=== PATIENT | male | born 1970 | race Caucasian/White ===

== ENCOUNTER 2016-10-31 18:59 | Emergency (ER) | payer SELFPAY ==
[2016-10-31] MEDS ORDERED: Lidocaine 2%-Epinephrine 1:100,000 20ml vial INF ONE (19:49)
--- NOTE | 2016-10-31 19:49 | EDPRACDOC ---
- General Information Chief Complaint: Wound Stated Complaint: ABSCESS RT ARM HX MRSA Time Seen by Provider: 10/31/16 19:43 Home Medications: Home Medications Naproxen Sodium 500 mg PO BID PRN #20 tablet.sa 10/31/16 Sulfamethoxazole/Trimethoprim [Bactrim Ds Tablet] 1 tab PO BID #20 tab 10/31/16 Allergies/Adverse Reactions: Allergies Allergy/AdvReac Type Severity Reaction Status Date / Time No Known Allergies Allergy Verified 02/17/16 17:14 - History of Present Illness Onset: 2-3 DAYS HPI: PT COMPLAINS OF PAIN, SWELLING AND REDNESS TO RIGHT FOREARM X 2-3 DAYS, PT STATES HAS HX OF MRSA, NO FEVER OR CHILLS, NO N/V/D. Location: Reports: Extremity Relevent History Of: Reports: None Prior Abscess: Reports: Different Pain: Reports: Severe Quality: Reports: Painful, Red Associated Signs & Symptoms: Denies: Chills, Fever, Proximal Streaking ED Past Medical History - History Reviewed Yes Nurses notes reviewed and agree except as marked - Patient Medical History Psychological History: Reports: Substance Use Disorder Additional Past Medical History: MRSA Surgical History: Reports: Other (LEFT HAND) - Family Medical History Reports: Cardiac Disorders (father) - Social Medical History Smoking Status: Heavy tobacco smoker (5 or more cigarettes/day or daily pipe/ cigar) Social History: Reports: Substance Use Disorder (IVDA, IN ED MULTIPLE TIMES FOR OVERDOSE) EDM Review of Systems - Review of Systems Constitutional: negative: Chills, Fever Gastrointestinal: negative: Nausea, Vomiting Musculoskeletal: No Symptoms Reported Integumentary: Wound - Physical Exam Constitutional: Alert (Awake), No apparent distress Oriented to: Time, Person, Place Last recorded Vital Signs: Oxygen Pulse Oxygen Saturation O2 Device Oxygen Flow Rate Fraction of Inspired Oxygen ( FIO2) - HEENT Head: Normal ( normocephalic) - Neurologic Memory Impaired: Normal Motor Function: Normal (Normal tone, Pulses 2+ No cyanosis or edema, FROM) Cranial Nerve: Normal (CN II-X11 intact sensation, strength 5/5) Cerebellar: Normal Mood Description: Normal Perception: Normal ED Abscess/Mass Exam - Integumentary Skin: Warm, Dry Mass: Size (3 CM), Red, Tender, Warm, Fluctuant, Local Cellulitis Lymphatics: Normal ED Procedures - Incision and Drainage Informed of risks, benefits and alternatives described.: Yes Informed Consent Signed: Verbal Site: RIGHT FOREARM Indication: Painful Mass Anesthetic: Lidocaine, with Epi Prep: Betadine Blade Size: 11 Incised Site drained: Reports: Blood, Pus Incised site was: Irrigated, Not Packed with Iodoform - Differential Diagnosis Abscess, Cellulitis Decision Time to Discharge: 20:12 - Departure Disposition: Home Condition: Stable Final Diagnosis: Abscess of right forearm Instructions: MRSA (Methicillin Resistant Staphylococcus Aureus) (ED) Education/Counseling Given To: Patient Education/Counseling Given Regarding: Diagnosis, Treatment, Prognosis, Follow Up Referrals: Omar Aguilera MD [Staff Physician] - One Week Prescriptions: Naproxen Sodium 500 mg PO BID PRN #20 tablet.sa PRN Reason: Pain Sulfamethoxazole/Trimethoprim [Bactrim Ds Tablet] 1 tab PO BID #20 tab Additional Instructions: Keep wound clean and dry, apply warm compresses to affected area 20 mins at a time 4 - 5 times daily, return to the ED for any worsening symptoms or concerns.
[2016-10-31 19:52] VITALS: TEMP 97.9; BMI 26.6
[2016-10-31] MEDS ORDERED: IBUPROFEN 800 MG TAB PO ONE (20:11)
[2016-10-31] MEDS ORDERED: TRIMETHOPRIM-SULFAMETHOXAZOLE TAB PO ONE (20:12)
[2016-10-31 20:27] VITALS: BP 131/74; PULSE 94
== END 2016-10-31 20:26 | disposition home or self-care (01) ==
LOC: EDMC 18:59
DX: L02.413 Cutaneous abscess of right upper limb (principal)
CPT/HCPCS: 10060; 99282; J3490

== ENCOUNTER 2016-11-03 20:26 | Emergency (ER) | payer SELFPAY ==
[2016-11-03 20:27] VITALS: BMI 26.6
== END 2016-11-03 20:51 | disposition left against medical advice (07) ==
LOC: ED 20:26
DX: Z53.21 Procedure and treatment not carried out due to patient leaving prior to being seen by health care provider (principal)